=== PATIENT | female | born 1940 | race Caucasian/White ===

== ENCOUNTER 2020-05-19 10:30 | Emergency (ER) | payer MEDICARE, OTHER ==
[~2020-05-19] VITALS: Ht 165.1 cm; Wt 61.2 kg
[2020-05-19 10:40] VITALS: BP 129/75
[2020-05-19] MEDS ORDERED: IBUPROFEN 600 MG TABLET PO ONE (12:00)
[2020-05-19] MEDS ORDERED: HYDROCODONE/APAP 5/325MG TABLET PO ONE (12:00)
[2020-05-19] MEDS ORDERED: HYDROCODONE/APAP 5/325MG TABLET ONE (12:02)
[2020-05-19] MEDS ORDERED: IBUPROFEN 600 MG TABLET ONE (12:03)
--- NOTE | 2020-05-19 12:10 | NUR ---
splint applied, medication given. No dsitress noted.
--- NOTE | 2020-05-19 12:13 | NUR ---
NIGEL SEYMOUR [phone]
--- NOTE | 2020-05-19 12:35 | NUR ---
Patient discharged to home in stable condition. Written and verbal after care instructions given. Patient verbalizes understanding of instruction.
== END 2020-05-19 12:45 | disposition home or self-care (01) ==
LOC: ER 10:35
DX: S52.591A Other fractures of lower end of right radius, initial encounter for closed fracture (principal); W01.0XXA Fall on same level from slipping, tripping and stumbling without subsequent striking against object, initial encounter; Y93.89 Activity, other specified; Y92.89 Other specified places as the place of occurrence of the external cause; Y99.8 Other external cause status
CPT/HCPCS: 73090-TC; 73110